=== PATIENT | female | born 1945 | race Two or more races ===

== ENCOUNTER 2019-06-01 15:43 | Inpatient (IN) | payer OTHER ==
[~2019-06-01] VITALS: Ht 152.4 cm; Wt 98.3 kg
[2019-06-01] MEDS ORDERED: SODIUM CHLORIDE 0.9% 1,000 ML IV ONE ×2 (16:26)
[2019-06-01 16:50] LABS: Urine WBC None Seen /hpf (0 - 5)
[2019-06-01 17:01] LABS: Basophils # (auto) 0.1 uL; Basophils % (auto) 1.2 % (0.0-2.0); Eosinophils # (auto) 0.1 uL; Eosinophils % (auto) 0.7 % (0.0-7.0); Hematocrit 43.7 % (36.0-46.0); Lymphocytes # (auto) 3.1 uL; Mean Corpuscular Hemoglobin 30.4 pg (28.0-32.0); Mean Corpuscular Hgb Conc. 34.2 g/dL (32.0-36.0); Mean Corpuscular Volume 88.7 fL (80.0-100.0); Monocytes # (auto) 0.5 uL; Neutrophils # (auto) 6.2 uL; Neutrophils % (auto) 62.1 % (37.0-80.0); Nucleated Red Blood Cells % 0.1 %; Platelet Count (auto) 354 10^3/uL (140-450); Red Blood Cells 4.92 10^6/uL (4.0-5.20); Red Cell Distribution Width 12.9 % (11.8-14.3); White Blood Cell 10.1 10^3/uL (4.4-10.8)
[2019-06-01 17:05] LABS: Urine Bacteria NONE SEEN /hpf (None Seen); Urine Blood 1+ /uL (Negative); Urine Specific Gravity 1.008 (1.001-1.035)
[2019-06-01 17:15] LABS: Albumin 4.3 g/dL (3.4-5.0); Potassium 3.2 mmol/L (3.5-5.1)
[2019-06-01 17:17] LABS: Alcohol, Urine < 3.0 mg/dL (0-5); Amphetamine Screen, Urine NEGATIVE (NEGATIVE); Barbiturate Scree,Urine NEGATIVE (NEGATIVE); Benzodiazephine Screen, Urine NEGATIVE (NEGATIVE); Cannabinoid Screen, Urine NEGATIVE (NEGATIVE); Cocaine Screen, Urine NEGATIVE (NEGATIVE); Opiate Scree,Urine NEGATIVE (NEGATIVE); Phencyclidine Screen, Urine NEGATIVE (NEGATIVE)
[2019-06-01 17:18] LABS: BUN/Creatinine Ratio 24.1
[2019-06-01 17:23] LABS: Bilirubin, Total 0.3 mg/dL (0.2-1.0); Total Protein 8.5 g/dL (6.4-8.2)
[2019-06-01] MEDS ORDERED: ONDANSETRON HCL 4 MG/2 ML VIAL IV ONE (17:30)
[2019-06-01] MEDS ORDERED: MORPHINE SULF INJ 2 MG/ML SYRINGE 1ML IV ONE (17:30)
[2019-06-01] MEDS ORDERED: ASPirin 81 mg TAB PO ONE (18:15)
[2019-06-01] MEDS ORDERED: ENOXAPARIN SOD 60 MG/0.6 ML SYRINGE SC ONE (18:15)
[2019-06-01] MEDS ORDERED: POTASSIUM EFFERVESENT TAB 25 MEQ PO ONE (18:30)
[2019-06-01] MEDS ORDERED: MORPHINE SULF INJ 2 MG/ML SYRINGE 1ML IV PRN ×2 (18:30→23:30)
[2019-06-01] MEDS ORDERED: LACTULOSE 20Gm/30ML SOLN PO PRN (18:30)
[2019-06-01] MEDS ORDERED: ACETAMINOPHEN 500 MG TAB PO PRN (18:30)
[2019-06-01] MEDS ORDERED: ONDANSETRON HCL 4 MG/2 ML VIAL IV PRN (18:30)
[2019-06-01] MEDS ORDERED: NITROGLYCERIN 0.4 MG SL TAB SL PRN (18:30)
[2019-06-01] MEDS ORDERED: DEXTROSE (50%) 50ML SYRG IV PRN (18:30)
[2019-06-01] MEDS: SODIUM CHLORIDE 0.9% 1,000 ML IV SCH (18:31)
[2019-06-01] MEDS ORDERED: LISI40TA PO (21:21)
[2019-06-01] MEDS: METOPROLOL TARTRATE 25 MG TAB PO SCH (21:57)
[2019-06-01] MEDS: LACTULOSE 20Gm/30ML SOLN PO SCH (21:57)
[2019-06-01] MEDS: ATORVASTATIN 20 MG TAB PO SCH (21:57)
[2019-06-01 22:00] VITALS: BP 139/83
[2019-06-01] MEDS: ACCU-CHEK COMFORT CURVE STRIP VI SCH (22:00)
[2019-06-01] MEDS ORDERED: HYDROcodone-ACET 5/325MG TAB PO PRN (23:30)
[2019-06-02 05:00] VITALS: BP 135/76
[2019-06-02 06:29] LABS: Potassium 4.3 mmol/L (3.5-5.1)
[2019-06-02 06:38] LABS: Albumin 3.7 g/dL (3.4-5.0); BUN/Creatinine Ratio 16.1; Bilirubin, Total 0.5 mg/dL (0.2-1.0); Calcium 8.5 mg/dL (8.5-10.1)
[2019-06-02] MEDS: ACCU-CHEK COMFORT CURVE STRIP VI SCH ×4 (06:43→21:43)
[2019-06-02 06:44] LABS: Cholesterol 110 mg/dL (< 200); HDL Cholesterol 24 mg/dL (40-59); LDL Cholesterol 64 mg/dL (< 100); Triglycerides 204 mg/dL (< 150)
[2019-06-02] MEDS: SODIUM CHLORIDE 0.9% 1,000 ML IV SCH (06:52)
[2019-06-02 09:00] VITALS: BP 141/75
[2019-06-02] MEDS: ASPirin 81 mg TAB PO SCH (09:37)
[2019-06-02] MEDS: LACTULOSE 20Gm/30ML SOLN PO SCH ×2 (09:37→21:43)
[2019-06-02] MEDS: METOPROLOL TARTRATE 25 MG TAB PO SCH ×2 (09:37→21:43)
[2019-06-02] MEDS: ENALAPRIL MALEATE 2.5 MG TAB PO SCH (09:38)
[2019-06-02] MEDS: NITROGLYCERIN 0.2MG/HR TOPICAL PATCH TD SCH (09:39)
[2019-06-02 13:00] VITALS: BP 126/65
[2019-06-02] MEDS ORDERED: ATOR10TA52 PO (14:53)
[2019-06-02] MEDS ORDERED: AMLO5TAB15 PO (14:53)
[2019-06-02 17:00] VITALS: BP 119/63
[2019-06-02] MEDS: ATORVASTATIN 20 MG TAB PO SCH (21:41)
[2019-06-02 22:00] VITALS: BP 127/76
[2019-06-03 05:00] VITALS: BP 129/70
[2019-06-03] MEDS: ACCU-CHEK COMFORT CURVE STRIP VI SCH ×2 (06:17→11:30)
[2019-06-03 09:00] VITALS: BP 134/76
[2019-06-03] MEDS: ASPirin 81 mg TAB PO SCH (10:30)
[2019-06-03] MEDS: LACTULOSE 20Gm/30ML SOLN PO SCH (10:31)
[2019-06-03] MEDS: ENALAPRIL MALEATE 2.5 MG TAB PO SCH (10:32)
[2019-06-03] MEDS: NITROGLYCERIN 0.2MG/HR TOPICAL PATCH TD SCH (10:33)
[2019-06-03] MEDS: METOPROLOL TARTRATE 25 MG TAB PO SCH (10:35)
[2019-06-03 13:00] VITALS: BP 120/72
[2019-06-03 14:30] VITALS: BP 126/69
[2019-06-03 17:00] VITALS: BP 107/65
== END 2019-06-03 18:50 | disposition home or self-care (01) | DRG 947 ==
LOC: ER 15:43 → TELE 15:44 → TELE-WESTW 20:46
PROVIDERS: ADMIT Internal Medicine; ATTEND Internal Medicine
DX: R53.1 Weakness (principal); G93.41 Metabolic encephalopathy; G45.9 Transient cerebral ischemic attack, unspecified; I24.9 Acute ischemic heart disease, unspecified; R07.9 Chest pain, unspecified; E87.6 Hypokalemia; E78.5 Hyperlipidemia, unspecified; I12.9 Hypertensive chronic kidney disease with stage 1 through stage 4 chronic kidney disease, or unspecified chronic kidney disease; M06.9 Rheumatoid arthritis, unspecified; N18.9 Chronic kidney disease, unspecified; Z96.652 Presence of left artificial knee joint; R79.89 Other specified abnormal findings of blood chemistry; R29.810 Facial weakness; R47.81 Slurred speech; H53.8 Other visual disturbances; Z82.3 Family history of stroke; Z82.49 Family history of ischemic heart disease and other diseases of the circulatory system; Z86.73 Personal history of transient ischemic attack (TIA), and cerebral infarction without residual deficits
CPT/HCPCS: 36415; 51702; 70450; 70551; 71045; 80053; 80061; 80307; 81001; 82140; 82550; 82962; 83036; 83605; 83880; 84443; 84484; 85025; 85379; 85652; 86141; 86225; 86235; 87040; 87081; 93005; 93306; 93886; 96361; 96374; 96375; 97116; 97163; 97530; G0378; J2405

== ENCOUNTER 2021-06-04 19:54 | Inpatient (IN) | payer OTHER ==
[~2021-06-04] VITALS: Ht 157.5 cm; Wt 59.4 kg
[~2021-06-04 19:54] MED LIST: AMLO-489 PO; ATOR10TA52 PO; LISI40TA11 PO
[2021-06-04] MEDS ORDERED: MORPHINE SULFATE INJECTION 2 MG/ML SYRG IV ONE (21:00)
[2021-06-04] MEDS ORDERED: NITROGLYCERIN 0.2MG/HR TOPICAL PATCH TD ONE (21:00)
[2021-06-04 21:06] LABS: Albumin 4.1 g/dL (3.4-5.0); Calcium 9.1 mg/dL (8.5-10.1); Potassium 3.9 mmol/L (3.5-5.1)
[2021-06-04 21:16] LABS: BUN/Creatinine Ratio 15.9; Basophils # (auto) 0.1 10 ^3/uL (0-0.2); Basophils % (auto) 0.7 % (0.0-2.0); Bilirubin, Total 0.3 mg/dL (0.2-1.0); Eosinophils # (auto) 0.1 10 ^3/uL (0-0.8); Hemoglobin 13.9 g/dL (12.2-16.2); Lymphocytes # (auto) 2.6 10 ^3/uL (0.4-5.4); Mean Corpuscular Hemoglobin 29.8 pg (28.0-32.0); Mean Corpuscular Hgb Conc. 34.7 g/dL (32.0-36.0); Mean Corpuscular Volume 85.9 fL (80.0-100.0); Monocytes # (auto) 0.6 10 ^3/uL (0-1.3); Monocytes % (auto) 6.4 % (0.0-12.0); Neutrophils # (auto) 5.4 10 ^3/uL (1.6-8.6); Neutrophils % (auto) 61.9 % (37.0-80.0); Nucleated Red Blood Cells % 0.1 %; Red Blood Cells 4.66 10^6/uL (4.0-5.20); Red Cell Distribution Width 13.4 % (11.8-14.3); Total Protein 8.4 g/dL (6.4-8.2); White Blood Cell 8.7 10^3/uL (4.4-10.8)
[2021-06-04 21:37] LABS: Magnesium 2.2 mg/dL (1.6-2.6)
[2021-06-04] MEDS ORDERED: NITROGLYCERIN 0.4 MG SL TAB SL PRN ×2 (21:45)
[2021-06-04] MEDS ORDERED: MORPHINE SULFATE 4 MG/ML SYR/VIAL IV PRN (21:45)
[2021-06-04] MEDS ORDERED: MORPHINE SULFATE INJECTION 2 MG/ML SYRG IV PRN (21:45)
[2021-06-04] MEDS ORDERED: ONDANSETRON HCL 4 MG/2 ML VIAL IV PRN (21:45)
[2021-06-04] MEDS ORDERED: ZOLPIDEM TARTRATE 5 MG TAB PO PRN (21:45)
[2021-06-04] MEDS ORDERED: ACETAMINOPHEN 325 MG TAB PO PRN (21:45)
[2021-06-04] MEDS: SODIUM CHLORIDE 0.9% 1,000 ML IV SCH (21:54)
[2021-06-04] MEDS: METOPROLOL TARTRATE 25 MG TAB PO SCH ×2 (22:00→22:39)
[2021-06-04] MEDS: LISINOPRIL 20 MG TAB PO SCH (22:00)
[2021-06-04] MEDS: SODIUM CHLOR 0.9% PF (SALINE LOCK) 10ML VIAL/SYR IV SCH (22:12)
[2021-06-04] MEDS: ATORVASTATIN 20 MG TAB PO SCH (22:39)
[2021-06-05] VITALS (7 sets, daily range): BP systolic 107–132; BP diastolic 51–71
[2021-06-05] MEDS: SODIUM CHLOR 0.9% PF (SALINE LOCK) 10ML VIAL/SYR IV SCH ×3 (06:02→22:28)
[2021-06-05 06:09] LABS: Basophils # (auto) 0.1 10 ^3/uL (0-0.2); Basophils % (auto) 1.3 % (0.0-2.0); Eosinophils # (auto) 0.1 10 ^3/uL (0-0.8); Hematocrit 36.2 % (36.0-46.0); Hemoglobin 12.4 g/dL (12.2-16.2); Lymphocytes # (auto) 2.7 10 ^3/uL (0.4-5.4); Mean Corpuscular Hemoglobin 29.7 pg (28.0-32.0); Mean Corpuscular Hgb Conc. 34.1 g/dL (32.0-36.0); Mean Corpuscular Volume 86.9 fL (80.0-100.0); Monocytes # (auto) 0.5 10 ^3/uL (0-1.3); Monocytes % (auto) 6.6 % (0.0-12.0); Neutrophils # (auto) 3.6 10 ^3/uL (1.6-8.6); Neutrophils % (auto) 51.1 % (37.0-80.0); Nucleated Red Blood Cells % 0.2 %; Red Blood Cells 4.17 10^6/uL (4.0-5.20); Red Cell Distribution Width 13.3 % (11.8-14.3)
[2021-06-05 06:42] LABS: Calcium 8.2 mg/dL (8.5-10.1); Magnesium 2.3 mg/dL (1.6-2.6); Potassium 3.8 mmol/L (3.5-5.1)
[2021-06-05] MEDS: SODIUM CHLORIDE 0.9% 1,000 ML IV SCH (09:00)
[2021-06-05] MEDS: METOPROLOL TARTRATE 25 MG TAB PO SCH ×2 (10:00→22:29)
[2021-06-05] MEDS: LISINOPRIL 20 MG TAB PO SCH ×2 (10:00→22:30)
[2021-06-05] MEDS: DOCUSATE SOD 100 MG CAP PO SCH (10:23)
[2021-06-05] MEDS: ASPirin 81 mg TAB PO SCH (10:23)
[2021-06-05] MEDS: FAMOTIDINE 20 MG TAB PO SCH (10:25)
[2021-06-05] MEDS: ENOXAPARIN SOD 40 MG/0.4 ML SYRINGE SC SCH (10:26)
[2021-06-05] MEDS: IBUPROFEN 400 MG TAB PO PRN (16:37)
[2021-06-05] MEDS: guaiFENesin-CODEINE Liq 5 ML UD PO PRN ×2 (16:37→20:49)
[2021-06-05] MEDS: ATORVASTATIN 20 MG TAB PO SCH (22:28)
[2021-06-06 05:00] VITALS: BP 107/63
[2021-06-06] MEDS: SODIUM CHLOR 0.9% PF (SALINE LOCK) 10ML VIAL/SYR IV SCH ×3 (06:03→22:19)
[2021-06-06 08:00] VITALS: BP 127/67
[2021-06-06] MEDS: LISINOPRIL 20 MG TAB PO SCH ×2 (08:17→22:21)
[2021-06-06] MEDS: FAMOTIDINE 20 MG TAB PO SCH (08:18)
[2021-06-06] MEDS: ENOXAPARIN SOD 40 MG/0.4 ML SYRINGE SC SCH (08:18)
[2021-06-06] MEDS: ASPirin 81 mg TAB PO SCH (08:18)
[2021-06-06] MEDS: DOCUSATE SOD 100 MG CAP PO SCH (08:19)
[2021-06-06] MEDS: METOPROLOL TARTRATE 25 MG TAB PO SCH ×2 (08:19→22:21)
[2021-06-06] MEDS: guaiFENesin-CODEINE Liq 5 ML UD PO PRN ×2 (08:25→22:23)
[2021-06-06 12:00] VITALS: BP 156/74
[2021-06-06] MEDS: IBUPROFEN 400 MG TAB PO PRN ×2 (12:09→22:22)
[2021-06-06] MEDS ORDERED: IOHEXOL 350 MG/ML 100ML IJ ONE ×2 (12:57→13:27)
[2021-06-06 16:00] VITALS: BP 119/62
[2021-06-06 22:00] VITALS: BP 135/70
[2021-06-06] MEDS: ATORVASTATIN 20 MG TAB PO SCH (22:20)
[2021-06-07 05:00] VITALS: BP 129/55
[2021-06-07 08:53] VITALS: BP 150/75
[2021-06-07] MEDS: guaiFENesin-CODEINE Liq 5 ML UD PO PRN (09:26)
[2021-06-07] MEDS: METOPROLOL TARTRATE 25 MG TAB PO SCH (09:27)
[2021-06-07] MEDS: FAMOTIDINE 20 MG TAB PO SCH (09:27)
[2021-06-07] MEDS: ASPirin 81 mg TAB PO SCH (09:27)
[2021-06-07] MEDS: LISINOPRIL 20 MG TAB PO SCH (09:28)
[2021-06-07] MEDS: DOCUSATE SOD 100 MG CAP PO SCH (09:28)
[2021-06-07] MEDS: IBUPROFEN 400 MG TAB PO PRN (09:28)
[2021-06-07] MEDS: ENOXAPARIN SOD 40 MG/0.4 ML SYRINGE SC SCH (09:29)
[2021-06-07 10:10] VITALS: BP 150/75
[2021-06-07] MEDS ORDERED: IBUP400T23 PO (11:32)
[2021-06-07] MEDS ORDERED: ASPI1CHW15 PO (11:32)
[2021-06-07] MEDS ORDERED: MET25T PO (11:32)
[2021-06-07] MEDS ORDERED: GUAI100S6 PO ×6 (11:33→11:40)
== END 2021-06-07 13:07 | disposition home or self-care (01) | DRG 313 ==
LOC: EDBD 19:54 → ER 19:56 → TELE 21:38 → TELE-CENTR 23:48
PROVIDERS: ADMIT Internal Medicine; ATTEND Internal Medicine Geriatric Medicine
DX: R07.89 Other chest pain (principal); E78.5 Hyperlipidemia, unspecified; I10 Essential (primary) hypertension; R73.03 Prediabetes; Z82.49 Family history of ischemic heart disease and other diseases of the circulatory system; Z83.3 Family history of diabetes mellitus; Z96.653 Presence of artificial knee joint, bilateral; Z98.1 Arthrodesis status; Z20.822 Contact with and (suspected) exposure to COVID-19
CPT/HCPCS: 36415; 71045; 71275; 80048; 80053; 80061; 83036; 83735; 83880; 84484; 85025; 87426; 93005; 93306; 93971; 96374; G0378; J2405